=== PATIENT | male | born 1995 | race Caucasian/White ===

== ENCOUNTER 2017-11-13 01:39 | Emergency (ER) | payer OTHER | END 2017-11-13 02:52 | disposition home or self-care (01) | LOC: EDBD 01:39 → D.ER 01:39 | DX: A54.01 Gonococcal cystitis and urethritis, unspecified (principal); F17.200 Nicotine dependence, unspecified, uncomplicated ==

== ENCOUNTER 2018-04-16 16:17 | Emergency (ER) | payer SELFPAY ==
[~2018-04-16] VITALS: Ht 180.3 cm; Wt 95.5 kg
[2018-04-16 16:33] VITALS: Ht 180.3 cm; Wt 95.5 kg
[2018-04-16] MEDS ORDERED: VOLTAREN75 MG PO (19:19)
[2018-04-16] MEDS ORDERED: ROBAXIN-750750 MG PO (19:19)
[2018-04-17 03:18] VITALS: BP 123/76
== END 2018-04-16 20:42 | disposition home or self-care (01) ==
LOC: D.ER 16:17
DX: S09.90XA Unspecified injury of head, initial encounter (principal); W13.1XXA Fall from, out of or through bridge, initial encounter; Y93.89 Activity, other specified; Y92.89 Other specified places as the place of occurrence of the external cause; S40.812A Abrasion of left upper arm, initial encounter; S89.91XA Unspecified injury of right lower leg, initial encounter; F17.200 Nicotine dependence, unspecified, uncomplicated